=== PATIENT | female | born 1945 | race Caucasian/White ===

== ENCOUNTER 2020-04-17 14:33 | Emergency (ER) | payer MEDICARE, OTHER ==
--- NOTE | 2020-04-17 15:09 | EDM.PDOC ---
ED HPI GENERAL MEDICAL PROBLEM - General Chief Complaint: Cardiovascular Problem Stated Complaint: CHEST PAIN Time Seen by Provider: 04/17/20 14:56 Source of Information: Reports: Patient History Limitations: Reports: No Limitations - History of Present Illness INITIAL COMMENTS - FREE TEXT/NARRATIVE: Patient presents along with family for evaluation of 2 days of left upper chest heaviness and tightness sensation. It came on several days ago and has stayed, varying throughout the day but never being completely resolved. It is more noticeable when up and doing activities but if she awakens during the night, the feeling is there as well. No shortness of breath to speak of. She has noticed episodes of sweating both with activity but even at rest. That has been new within the last few days. The upper chest symptoms have actually been present for some time but they have come and gone, never lasting this long. No fever or chills. No nausea or vomiting but she did have some upper abdominal pain 2 days ago. She took 325 mg of aspirin on the way here. She feels okay at the moment but the symptom of chest pain/tightness is still present. Onset: Gradual Duration: Week(s): (At least 3 weeks for both complaints.) Location: Reports: Head, Neck, Chest Quality: Reports: Ache Severity: Mild Improves with: Reports: None Worsens with: Reports: Other (Right-sided headache pain is worse with coughing.) Associated Symptoms: Reports: Chest Pain (It is difficult to tell how cough, chest discomfort, headaches are interrelated but they seem to be.), Headaches - Related Data Allergies Allergy/AdvReac Type Severity Reaction Status Date / Time acetaminophen [From Vicodin] Allergy Hives Verified 03/01/15 10:50 cortisone Allergy Other Verified 04/17/20 14:38 hydrocodone bitartrate Allergy Hives Verified 03/01/15 10:50 [From Vicodin] Home Meds: Home Meds Aspirin 81 mg PO DAILY 05/27/19 [History] Levothyroxine 25 mcg PO DAILY 05/27/19 [History] [place]-3/DHA/Epa/Fish Oil [[place] 3 500 Softgel] 1,000 mg PO DAILY 05/27/19 [History] Niacin 250 mg PO DAILY 04/17/20 [History] Past Medical History HEENT History: Reports: Impaired Vision Other HEENT History: wears glasses Cardiovascular History: Reports: High Cholesterol Gastrointestinal History: Reports: Chronic Constipation, Colon Polyp, GERD Genitourinary History: Reports: None [employer] History: Reports: Musculoskeletal History: Reports: Back Pain, Chronic, Fracture, Neck Pain, Chronic, Other (See Below) Other Musculoskeletal History: broken jaw; ankle surgery Endocrine/Metabolic History: Reports: Hypothyroidism - Infectious Disease History Infectious Disease History: Reports: Chicken Pox, Measles, Mumps, Rubella - Past Surgical History HEENT Surgical History: Reports: None Cardiovascular Surgical History: Reports: None GI Surgical History: Reports: Colonoscopy, Polypectomy Female Surgical History: Reports: Breast Biopsy Endocrine Surgical History: Reports: None Musculoskeletal Surgical History: Reports: None Social & Family History - Family History Musculoskeletal: Reports: Osteoporosis Neurological: Reports: Alzheimers Disease Oncologic: Reports: Colon, Liver, Pancreatic, Other (See Below) Other Oncologic Family History: heart CA - Tobacco Use Smoking Status *Q: Never Smoker - Caffeine Use Caffeine Use: Reports: Coffee - Recreational Drug Use Recreational Drug Use: No ED ROS GENERAL - Review of Systems Review Of Systems: See Below Constitutional: Reports: Diaphoresis. Denies: Fever, Chills, Weight Loss HEENT: Reports: No Symptoms Respiratory: Reports: No Symptoms Cardiovascular: Reports: Chest Pain (Left upper chest region). Denies: Dyspnea on Exertion, Edema GI/Abdominal: Reports: Abdominal Pain (Brief episode of epigastric abdominal pain 2 days ago but none today.) : Reports: No Symptoms Musculoskeletal: Reports: Neck Pain (Sided neck pain which at times radiates up along the right ear and into the temporal region of the head.) Skin: Reports: No Symptoms Neurological: Reports: Headache (Sided headache with coughing as described.). Denies: Numbness, Paresthesia, Trouble Speaking Hematologic/Lymphatic: Reports: No Symptoms ED EXAM, GENERAL - Physical Exam Exam: See Below Exam Limited By: No Limitations General Appearance: Alert, No Apparent Distress Throat/Mouth: Normal Inspection Head: Atraumatic Neck: Supple, Non-Tender. No: Lymphadenopathy (R), Lymphadenopathy (L), Tender Lateral Respiratory/Chest: No Respiratory Distress Cardiovascular: No Murmur, Extra Beats (There is generally an alteration between single sinus beats and a bigeminal pair consisting of sinus beat and PAC.) GI/Abdominal: Soft, Non-Tender Neurological: Oriented, CN II-XII Intact, Normal Cognition, No Motor/Sensory Deficits Course - Vital Signs Last Recorded V/S: Last Vital Signs Temp 36.9 C 04/17/20 14:39 Pulse 59 L 04/17/20 17:27 Resp 17 04/17/20 17:27 BP 126/60 04/17/20 17:27 Pulse Ox 98 04/17/20 17:27 - Orders/Labs/Meds Orders: Active Orders 24 hr Category Date Time Status EKG Documentation Completion [RC] ASDIRECTED Care 04/17/20 15:12 Active Chest 2V [CR] Stat Exams 04/17/20 15:11 Taken Saline Lock Insert [OM.PC] Routine Oth 04/17/20 15:11 Ordered EKG 12 Lead [EK] Routine Ther 04/17/20 15:11 Ordered Labs: Laboratory Tests 04/17/20 04/17/20 Range/Units 14:40 15:11 WBC 6.6 (4.5-11.0) K/uL RBC 4.45 (3.30-5.50) M/uL Hgb 13.8 (12.0-15.0) g/dL Hct 40.3 (36.0-48.0) % MCV 91 (80-98) fL MCH 31 (27-31) pg MCHC 34 (32-36) % Plt Count 232 (150-400) K/uL Neut % (Auto) 44 (36-66) % Lymph % (Auto) 47 H (24-44) % [place]ingo % (Auto) 9 H (2-6) % Eos % (Auto) 1 L (2-4) % Baso % (Auto) 0 (0-1) % Sodium 141 (140-148) mmol/L Potassium 3.7 (3.6-5.2) mmol/L Chloride 106 (100-108) mmol/L Carbon Dioxide 26 (21-32) mmol/L Anion Gap 9.1 (5.0-14.0) mmol/L BUN 19 H (7-18) mg/dL Creatinine 1.2 H (0.6-1.0) mg/dL Est Cr Clr Drug Dosing 38.13 mL/min Estimated GFR (MDRD) 44 L (>60) Glucose 104 (74-106) mg/dL Calcium 8.6 (8.5-10.1) mg/dL Total Bilirubin 0.3 (0.2-1.0) mg/dL AST 22 (15-37) U/L ALT 41 (12-78) U/L Alkaline Phosphatase 94 (46-116) U/L Troponin I < 0.017 (0.000-0.056) ng/mL C-Reactive Protein < 0.05 (0.0-0.3) mg/dL Total Protein 6.9 (6.4-8.2) g/dL Albumin 3.8 (3.4-5.0) g/dL Globulin 3.1 (2.3-3.5) g/dL Albumin/Globulin Ratio 1.2 (1.2-2.2) Meds: Medications Discontinued Medications Generic Name Dose Route Start Last Admin Trade Name Freq PRN Reason Stop Dose Admin Nitroglycerin 0.4 mg 04/17/20 15:12 04/17/20 15:30 Nitrostat SL 04/17/20 15:13 0.4 mg ONETIME ONE Administration Sodium Chloride 10 ml 04/17/20 15:11 Saline Flush FLUSH ASDIRECTED PRN Keep Vein Open - Re-Assessments/Exams Free Text/Narrative Re-Assessment/Exam: 04/17/20 20:48 The EKG shows no acute changes. The alternating single beat and bigeminal pattern is reviewed. She received a single dose of nitroglycerin which probably improved her chest discomfort but gave her an increase in right-sided neck and head pain. That pain resolved after 15 or 20 minutes. I reviewed labs which were unremarkable including a troponin. Given the collection of symptoms, a CT scan of the head was obtained which did not show any acute change. After discussion of findings today and future plans, I think it is reasonable for her to obtain a cardiac stress test. She should talk with her primary care team about this. Additionally having a discussion about whether a CT angiogram is indicated given her symptoms recently described. Her daughter is a nurse at the facility and can certainly assist in helping to coordinate things. The patient was discharged in stable condition. Multiple questions reviewed with patient and family. Departure - Departure Time of Disposition: 17:55 Disposition: Home, Self-Care 01 Clinical Impression: Chest pain Qualifiers: Chest pain type: other chest pain Qualified Code(s): R07.89 - Other chest pain Headache Qualifiers: Headache type: unspecified Headache chronicity pattern: unspecified pattern Intractability: not intractable Qualified Code(s): R51 - Headache Arrhythmia Qualifiers: Arrhythmia type: unspecified cardiac arrhythmia Qualified Code(s): I49.9 - Cardiac arrhythmia, unspecified Instructions: Chest Wall Pain, [id number] Referrals: PCP,None [Primary Care Provider] - Forms: ED Department Discharge Additional Instructions: Continue current medications. Contact primary care to discuss obtaining a cardiac stress test. Also ask them about potential need for a CT angiogram of the head if her cough related headache does not improve. If you feel worse in any way, return to emergency department. Sepsis Event Note (ED) - Evaluation Sepsis Screening Result: No Definite Risk - Focused Exam Vital Signs: Vital Signs Temp Pulse Resp BP BP Pulse Ox 04/17/20 17:27 59 L 17 126/60 98 04/17/20 16:32 58 L 11 L 115/57 L 98 04/17/20 15:59 53 L 14 127/63 96 04/17/20 15:33 78 11 L 151/73 H 93 L 04/17/20 15:30 167/79 H 04/17/20 14:46 63 147/75 H 04/17/20 14:39 36.9 C 72 19 165/73 H 97 - My Orders Last 24 Hours: My Active Orders 04/17/20 15:11 Chest 2V [CR] Stat Saline Lock Insert [OM.PC] Routine EKG 12 Lead [EK] Routine 04/17/20 15:12 EKG Documentation Completion [RC] ASDIRECTED - Assessment/Plan Last 24 Hours: My Active Orders 04/17/20 15:11 Chest 2V [CR] Stat Saline Lock Insert [OM.PC] Routine EKG 12 Lead [EK] Routine 04/17/20 15:12 EKG Documentation Completion [RC] ASDIRECTED
[2020-04-17] MEDS ORDERED: Sodium Chloride 0.9% 10 ML Syringe FLUSH PRN (15:11)
[2020-04-17] MEDS ORDERED: Nitroglycerin 0.4 MG Tab.SL SL ONE (15:12)
--- NOTE | 2020-04-17 17:19 | CRLCT ---
HISTORY: Intermittent right temporal head pain for 3 weeks. COMPARISON: None. TECHNIQUE: Noncontrast axial images were obtained through the brain. FINDINGS: Álvarez-white matter differentiation is preserved. No evidence for acute intracranial hemorrhage or infarction. No midline shift or mass effect. The ventricles are nondilated and symmetric. No abnormal intra or extra-axial fluid collection. The bony calvaria are intact. Mucosal thickening of the sphenoid sinus. IMPRESSION: No acute intracranial pathology. Please note that all CT scans at this facility use dose modulation, iterative reconstruction, and/or weight-based dosing when appropriate to reduce radiation dose to as low as reasonably achievable. Dictated by Lori Rebolledo MD @ Apr 17 2020 5:15PM Signed by Dr. Lori Rebolledo @ Apr 17 2020 5:17PM
[2020-04-17 17:28] VITALS: BP 126/60; PULSE 59
--- NOTE | 2020-04-19 10:31 | CR ---
CHEST: 2 view CLINICAL HISTORY:Chest pain COMPARISON:None FINDINGS: The heart size, pulmonary vascularity and hilar structures are normal. No infiltrate effusion or pneumothorax is seen. There is some linear density in the lingula likely scarring. There are atherosclerotic changes in the aorta. IMPRESSION: No acute cardiopulmonary process.
== END 2020-04-17 18:18 | disposition home or self-care (01) ==
LOC: JP.ED 14:33
DX: I49.9 Cardiac arrhythmia, unspecified (principal); R51 Headache; E03.9 Hypothyroidism, unspecified; Z88.8 Allergy status to other drugs, medicaments and biological substances; Z79.82 Long term (current) use of aspirin; Z79.899 Other long term (current) drug therapy
CPT/HCPCS: 36415; 70450; 71046; 80053; 84484; 85025; 86140; 93005; 99285; A9270

== ENCOUNTER 2022-11-16 06:24 | Day surgery (SDC) | payer MEDICARE, OTHER ==
[2022-11-16] MEDS ORDERED: Propofol 200 MG/20 ML SDV ONE ×2 (07:22→07:58)
[2022-11-16] MEDS ORDERED: Midazolam 1 MG/ML 2 ML SDV ONE (07:22)
[2022-11-16 09:29] VITALS: BP 143/50; PULSE 48
[2022-11-16] MEDS ORDERED: Sodium Chloride 0.9% 1,000 ML IV SCH (09:30)
== END 2022-11-16 09:53 | disposition home or self-care (01) ==
LOC: JP.SDS 06:24
PROVIDERS: ATTEND Surgery
DX: Z12.11 Encounter for screening for malignant neoplasm of colon (principal); K63.89 Other specified diseases of intestine; N18.9 Chronic kidney disease, unspecified; E78.00 Pure hypercholesterolemia, unspecified; Z88.8 Allergy status to other drugs, medicaments and biological substances; Z88.5 Allergy status to narcotic agent
CPT/HCPCS: G0121; J2250; J2704; J7030

== ENCOUNTER 2023-01-13 14:46 | Emergency (ER) | payer MEDICARE, OTHER ==
[2023-01-13] MEDS ORDERED: Lidocaine 1% 5 ML VIAL INJECT ONE (15:40)
[2023-01-13] MEDS ORDERED: Bacitracin Oint 1 GM U/D Packet TOP ONE (15:40)
[2023-01-13 15:55] VITALS: BP 142/57; PULSE 64
== END 2023-01-13 16:20 | disposition home or self-care (01) ==
LOC: JP.ED 14:46
DX: S61.112A Laceration without foreign body of left thumb with damage to nail, initial encounter (principal); E78.00 Pure hypercholesterolemia, unspecified; K21.9 Gastro-esophageal reflux disease without esophagitis; E03.9 Hypothyroidism, unspecified; Z88.5 Allergy status to narcotic agent; Z88.8 Allergy status to other drugs, medicaments and biological substances; Z79.82 Long term (current) use of aspirin; Z79.899 Other long term (current) drug therapy; Z86.16 Personal history of COVID-19; W26.8XXA Contact with other sharp object(s), not elsewhere classified, initial encounter
CPT/HCPCS: 12001; 99282

== ENCOUNTER 2024-11-05 07:19 | Day surgery (SDC) | payer MEDICARE, OTHER ==
[2024-11-05] MEDS ORDERED: Midazolam 1 MG/ML 2 ML SDV ONE (07:30)
[2024-11-05] MEDS ORDERED: fentaNYL 100 MCG/2 ML SDV ONE (07:30)
[2024-11-05] MEDS ORDERED: Propofol 200 MG/20 ML SDV ONE (07:30)
[2024-11-05] MEDS: Lactated Ringers 1,000 ML IV SCH (08:17)
[2024-11-05] MEDS: ceFAZolin 2 GM in Premix Bag 1 BAG IV ONE (08:35)
[2024-11-05] MEDS: Bupivacaine 0.5%/EPINEPHrine 1:200,000 50 ML MDV ONE (09:05)
[2024-11-05 10:43] VITALS: BP 129/58; PULSE 51
== END 2024-11-05 10:45 | disposition home or self-care (01) ==
LOC: JP.SDS 07:19
PROVIDERS: ATTEND Surgery
DX: S70.11XA Contusion of right thigh, initial encounter (principal); N18.9 Chronic kidney disease, unspecified
CPT/HCPCS: 01250; 27337; J0690; J2250; J2704; J3010; J3490; J7120; 88304